=== PATIENT | female | born 1980 | race Hispanic/Latino ===

== ENCOUNTER 2016-12-11 18:13 | Emergency (ER) | payer OTHER ==
[~2016-12-11] VITALS: Ht 170.2 cm; Wt 106.0 kg
[~2016-12-11 18:13] MED LIST: NAPROSYN500 MG PO
[2016-12-11 19:40] VITALS: BP 122/74
== END 2016-12-11 19:40 | disposition home or self-care (01) | DRG 951 ==
LOC: ED 18:13
DX: Z20.818 Contact with and (suspected) exposure to other bacterial communicable diseases (principal)